=== PATIENT | female | born 1980 | race African-American/Black ===

== ENCOUNTER 2023-11-17 07:27 | Emergency (ER) | payer OTHER, SELFPAY ==
[2023-11-17] VITALS (7 sets, daily range): BP systolic 152–205; BP diastolic 97–122
--- NOTE | 2023-11-17 08:16 | ED.GENMED ---
History of Present Illness
<Willard Pelletier PA-C - Last Filed: 11/17/23 10:42>
General
Chief Complaint: Blood Pressure Problem
Time Seen by Provider: 11/17/23 08:03
History of Present Illness
History of Present Illness:
Patient is a 43-year-old female with past medical history of carpal tunnel and hypertension not compliant with antihypertensive medication here today for evaluation of visual changes in the setting of elevated blood pressure.
The patient states that approximately 6 AM this morning she noted sudden onset of visual changes bilaterally and symmetrically. She describes the peripheral vision as having large black spots that are persistent. No spots noted elsewhere. No
vision loss. No eye pain. No difficulty moving her eyes. Patient does not wear contact lenses. She also endorses a mild left-sided headache described as a 2 out of 10 in severity. No noted dizziness or lightheadedness. No numbness or tingling.
No focal weakness. No fevers. No cough, rhinorrhea, sore throat, or congestion. No vomiting or diarrhea. No abdominal pain noted. Patient states 2 days ago she had chest pain which lasted for several hours and self resolved. She is currently
chest pain-free. She has had no recurrence of this. No difficulty breathing. The patient states she has a history of hypertension and was previously prescribed losartan 25 mg by her primary care provider, however, stopped this medication on her
own as she was not sure if it was working. She does report having preeclampsia during her which was approximately 1 year ago.
Of note, the patient states she has been increasingly stressed and her son is undergoing surgery today. She reports not sleeping for most of the night only approximately 1 hour in total. She states prior to 6 AM she felt normal and had no symptoms.
Review of Systems
<Willard Pelletier PA-C - Last Filed: 11/17/23 10:42>
Review of Systems
All Other Systems: ROS reviewed and negative except as documented in HPI and ROS
Phy Exam
<Willard Pelletier PA-C - Last Filed: 11/17/23 10:42>
Physical Exam
Physical Exam:
GENERAL: Alert , in no apparent distress
EYE: pupils equal and reactive to light, extraocular movements intact throughout, normal peripheral vision, no pain or restriction with extraocular movements
NECK: Supple, no significant adenopathy.
ENT: o/p clr, mmm.
CARDIAC: Regular rate and rhythm .
LUNGS: Clear breath sounds bilaterally, no acute respiratory distress, no wheezes/rales/rhonchi
ABDOMEN: Soft, without focal tenderness, no r/g, no cvat
NEUROLOGICAL: Alert and oriented, no focal neuro deficits, cranial nerves II through XII intact, normal cerebellar examination, normal sensation and motor, moving all extremities
SKIN: Warm and dry, skin intact.
MUSCULOSKELETAL: No edema, well perfused.
PSYCH: Normal and appropriate interaction.
Course
<Willard Pelletier PA-C - Last Filed: 11/17/23 10:42>
Orders/Labs/Results
Orders:
Orders
11/17/23 07:44
ECG [Electrocardiogram (*1)] Urgent
Reason for Study: Other
Other Reason for Exam: hypertension
EKG- Treatment ONCE
Test Result ONCE
11/17/23 07:56
Comprehensive Metabolic Panel Urgent
HCG, Serum Qualitative Screen Urgent
Magnesium Urgent
Phosphorus Urgent
Troponin I Urgent
11/17/23 07:57
Complete Blood Count/With Diff Urgent
11/17/23 08:15
CR Chest - 2 Views Urgent
Comment:
Reason For Exam: elevated bp, recent cp
11/17/23 08:21
CT Head W/o Iv Contrast Urgent
Comment:
Reason For Exam: headache, visual changes, elevated blood pressure
11/17/23 08:22
Labetalol HCl [Trandate] 10 mg IV NOW STA
11/17/23 08:26
Add On- LAB Urgent
Tests Added?: magnesium, phosphorus
Abnormal Lab Results
11/17/23
07:56
Glucose 106 H mg/dl
(70-99)
11/17/23 07:57
11/17/23 07:56
Vital Signs
Initial and Last Documented VS:
Initial Vital Signs
Temp Pulse Resp BP Pulse Ox
97.8 F 82 18 205/122 97
11/17/23 07:29 11/17/23 07:29 11/17/23 07:29 11/17/23 07:29 11/17/23 07:29
Last Documented Vital Signs
Temp Pulse Resp BP Pulse Ox
97.8 F 72 18 152/97 97
11/17/23 07:29 11/17/23 10:00 11/17/23 10:00 11/17/23 10:00 11/17/23 07:29
<Samaria Caruso MD - Last Filed: 11/17/23 09:00>
Orders/Labs/Results
Orders:
Orders
11/17/23 07:44
ECG [Electrocardiogram (*1)] Urgent
Reason for Study: Other
Other Reason for Exam: hypertension
EKG- Treatment ONCE
Test Result ONCE
11/17/23 07:56
Comprehensive Metabolic Panel Urgent
HCG, Serum Qualitative Screen Urgent
Magnesium Urgent
Phosphorus Urgent
Troponin I Urgent
11/17/23 07:57
Complete Blood Count/With Diff Urgent
11/17/23 08:15
CR Chest - 2 Views Urgent
Comment:
Reason For Exam: elevated bp, recent cp
11/17/23 08:21
CT Head W/o Iv Contrast Urgent
Comment:
Reason For Exam: headache, visual changes, elevated blood pressure
11/17/23 08:22
Labetalol HCl [Trandate] 10 mg IV NOW STA
11/17/23 08:26
Add On- LAB Urgent
Tests Added?: magnesium, phosphorus
Abnormal Lab Results
11/17/23
07:56
Glucose 106 H mg/dl
(70-99)
11/17/23 07:57
11/17/23 07:56
Vital Signs
Initial and Last Documented VS:
Initial Vital Signs
Temp Pulse Resp BP Pulse Ox
97.8 F 82 18 205/122 97
11/17/23 07:29 11/17/23 07:29 11/17/23 07:29 11/17/23 07:29 11/17/23 07:29
Last Documented Vital Signs
Temp Pulse Resp BP Pulse Ox
97.8 F 72 18 152/97 97
11/17/23 07:29 11/17/23 10:00 11/17/23 10:00 11/17/23 10:00 11/17/23 07:29
<Willard Pelleteir PA-C - Last Filed: 11/17/23 10:42>
MDM/Problems Addressed
Differential Diagnosis Includes:
Patient is a 43-year-old female with past medical history of carpal tunnel and hypertension not compliant with antihypertensive medication here today for evaluation of visual changes in the setting of elevated blood pressure.
Overall patient appears very well. She is significantly hypertensive to 205/122. Repeat blood pressure persistently elevated to 194/122. Patient is neurologically intact on examination. No focal deficits appreciated. No objective visual changes
noted on examination. Symptoms/findings at this time are concerning for potential hypertensive emergency given the patient's reported visual changes, headache, and significantly elevated blood pressure. We will initiate a workup and attempt to
lower the blood pressure slowly with labetalol 10 mg IV x 1. Will closely monitor and follow. Case discussed with attending, Dr. Caruso.
11/17/2023 10:37: Screening labs normal including a negative troponin. EKG nonischemic. Chest x-ray negative. CT scan without acute abnormalities. Patient reassessed. Blood pressure has significantly improved to 152/97. Her symptoms have
completely resolved and she feels normal at her baseline. No residual headache or visual changes. At this time, symptoms/findings may have been secondary to the patient's elevated blood pressure, however, her blood pressure is now under control
and she is currently asymptomatic. The patient appears well at this time and is stable for discharge with recommendations to closely monitor her blood pressure at home, restart her losartan medication (which she states she has medication at home),
and closely follow-up with her family doctor within the next 2 to 3 days. The patient was given very strict return precautions for worsening symptoms. She voices understanding. All questions answered. Stable for discharge. Case discussed with
attending, Dr. Caruso.
<Willard Pelletier PA-C - Last Filed: 11/17/23 10:42>
*Critical Care Note
Total Time (30-74mins, 75-104mins- exclusive of procedures): Not Applicable
ED Attending Note
<Willard Pelletier PA-C - Last Filed: 11/17/23 10:42>
-
Portions of this chart may have been created with voice recognition software.� Occasional wrong word or��sound alike� substitutions may have occurred due to the inherent limitations of voice recognition software.
<Samaria Caruso MD - Last Filed: 11/17/23 09:00>
ED Attending Note
Patient seen and examined by attending physician: Yes
I performed the substantive portion of visit, reviewed & personally made and approve the management plan that is documented in note by myself or ISADORA.: Yes
ED Attending Note:
43-year-old male presents the emergency department after noted to have elevated blood pressure while in the preop area for her son who is getting ear tubes at this time. Patient notes noncompliance with blood pressure medication for at least many
months and has not checked her blood pressure in at least 3 months. She does note a 'throbbing' left-sided headache, not sudden onset, not worst of life, described as mild to moderate in intensity without radiation, exacerbating, relieving factors.
She denies nuchal rigidity, vomiting, photophobia, fever, chills, dyspnea. She has intermittent episodes of chest pain, most recently a few days ago, not associated with diaphoresis, dyspnea, etc. Patient also noted today that she was 'seeing
spots' in her peripheral vision which is now since resolved on exam, patient neurologically intact. She describes multiple stressors in her life including impending divorce. Heart regular rate and rhythm, lungs CTA, pupils equal round reactive to
light. Elevated blood pressure noted here. Will observe closely, medication to gradually address severe hypertension, workup here including labs CT, etc.
Discharge Plan
Departure
Patient Disposition: Home (Routine Discharge)
Date of Disposition: 11/17/23
Time of Disposition: 10:38
Patient with high blood pressure during this ER visit?: Yes
Condition: Fair
Covid-19: Not Applicable
Discharge Problem:
Headache, Visual disturbance, Elevated blood pressure reading
Instructions: High Blood Pressure (DC)
Referrals:
PRIVATE,PHYSICIAN [Family Provider] - Follow up in 2-3 days (Patient's PCP)
Activity Restrictions/Additional Instructions:
You were seen today for evaluation of a headache and visual changes in the setting of elevated blood pressure.
We provided you with medication with improvement in your blood pressure.
Your workup today is largely unremarkable without emergency findings identified.
Please monitor your blood pressure at home, restart your losartan blood pressure medication, and closely follow-up with your family doctor within the next 2 to 3 days for reevaluation.
Return for any new, worsening, or concerning symptoms.
Interventions
Interventions:
*Risk Screen - Suicide Last Done: 11/17/23 07:58
*General Assessment Last Done: 11/17/23 07:58
*Neglect/Abuse Screening Last Done: 11/17/23 07:58
ED- Fall Risk Assessment Last Done: 11/17/23 07:58
*ED COVID-19 Vaccine History Last Done: 11/17/23 07:58
ED- Cardiac Assessment Last Done: 11/17/23 07:46
ED- Neurological Assessment Last Done: 11/17/23 07:46
ED- Pulmonary Assessment Last Done: 11/17/23 07:46
Discharge Date and Time
Print Language: CHINESE
[2023-11-17 08:19] LABS: % Basophils 0.7 % (0-2); % Immature Granulocytes 0.1 % (0-0.5); % Lymphocytes 38.3 % (20.5-51.1); % Monocytes 6.6 % (1.7-9.3); % Neutrophils 51.3 % (42.2-75.2); Absolute Basophils 0.1 10^3/uL (0-0.2); Absolute Eosinophils 0.2 10^3/uL (0-0.7); Absolute Lymphocytes 2.9 10^3/uL (1.2-3.4); Absolute Monocytes 0.5 10^3/uL (0.1-0.6); Absolute Neutrophils 3.9 10^3/uL (1.4-6.5); Hematocrit 37.8 % (37.0-47.0); Hemoglobin 13.3 g/dL (12.0-16.0); Mean Corp Hgb Conc. 35.2 g/dL (33.0-37.0); Mean Corpuscular Hgb 30.5 pg (27.0-31.0); Mean Corpuscular Volume 86.7 fL (81.0-99.0); Mean Platelet Volume 9.5 fL (7.4-10.4); Nucleated Red Blood Cells % 0 %; Platelet Count 306 10^3/uL (130-400); Red Blood Cell Count 4.36 10^6/uL (4.20-5.40); Red Cell Dist. Width 13.1 % (11.5-14.5); White Blood Cell Count 7.6 10^3/uL (4.8-10.8)
[2023-11-17] MEDS: TRANDATE 10 MG IV (08:28)
[2023-11-17 08:29] LABS: HCG, Serum Qualitative Screen Negative
[2023-11-17 08:42] LABS: ALT (SGPT) 16 U/L (0-35); AST (SGOT) 24 U/L (14-36); Albumin 4.5 g/dl (3.5-5.0); Alkaline Phosphatase 55 U/L (38-126); Blood Urea Nitrogen 14 mg/dl (7-17); Calcium 9.4 mg/dl (8.4-10.2); Carbon Dioxide 27 mmol/L (22-30); Chloride 102 mmol/L (98-107); Glucose 106 mg/dl (70-99); Potassium 4.3 mmol/L (3.5-5.1); Sodium 136 mmol/L (135-145); Total Bilirubin 0.4 mg/dl (0.2-1.3); Total Protein 7.4 g/dl (6.3-8.2); eGFR > 60.00
[2023-11-17 08:53] LABS: Troponin I < 0.012 ng/ml
[2023-11-17 10:04] LABS: Magnesium 1.8 mg/dl (1.6-2.3); Phosphorus 4.1 mg/dl (2.5-4.5)
== END 2023-11-17 10:58 | disposition home or self-care (01) ==
LOC: EMR 07:27
PROVIDERS: Emergency Medicine; EMERGENCY PHYSICIAN Emergency Medicine
DX: R51.9 Headache, unspecified (principal); H53.9 Unspecified visual disturbance; R03.0 Elevated blood-pressure reading, without diagnosis of hypertension; I10 Essential (primary) hypertension
CPT/HCPCS: 99284; 96374; 70450; 71046; 80053; 83735; 84100; 84484; 84703; 85025; 93005